=== PATIENT | female | born 1990 | race Native Hawaiian/Other Pacific Islander ===

== ENCOUNTER 2017-08-03 10:19 | Emergency (ER) | payer OTHER ==
[~2017-08-03] VITALS: Ht 182.9 cm; Wt 106.8 kg
[2017-08-03 10:22] VITALS: BP 143/89; PULSE 66; RESP 16; O2SAT 100
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
[2017-08-03 13:23] VITALS: BP 130/81; PULSE 71; RESP 16; O2SAT 98
== END 2017-08-03 13:24 | disposition home or self-care (01) ==
LOC: SED 10:19
DX: F33.2 Major depressive disorder, recurrent severe without psychotic features (principal); F17.200 Nicotine dependence, unspecified, uncomplicated